=== PATIENT | male | born 1970 | race Caucasian/White ===

== ENCOUNTER 2025-06-17 02:46 | Emergency (ER) | payer BC, SELFPAY ==
--- NOTE | 2025-06-17 02:50 | ED.ABDPAIN ---
HPI - Abdominal Pain General Time Seen by Provider: 02:50 Date Seen: 06/17/25 Chief Complaint: Abdominal Pain Stated Complaint: abdominal pain Time Seen by Provider: 06/17/25 02:50 Source: patient, RN notes reviewed and old records reviewed Mode of arrival: ambulatory Limitations: no limitations History of Present Illness HPI narrative: 54-year-old male who comes in today with abdominal pain. Patient woke with left lower quadrant abdominal pain about 1:30 a.m., pain is constant, does not radiate into the back or genitals, no urinary symptoms, no diarrhea. No fevers or chills, no prior surgeries. Denies blood in the stools. Has not taken anything for symptoms. Not worse with movement. Related Data Home Medications ?Medication ?Instructions ?Recorded ?Confirmed amlodipine 5 mg tablet 5 mg PO DAILY 06/17/25 06/17/25 atorvastatin 10 mg tablet 10 mg PO DAILY 06/17/25 06/17/25 lisinopril 20 2 tab PO DAILY 06/17/25 06/17/25 mg-hydrochlorothiazide 12.5 mg tablet Previous Rx's ?Medication ?Instructions ?Recorded oxycodone 5 mg tablet 5 mg PO Q6H PRN pain #7 tabs 06/17/25 Allergies Allergy/AdvReac Type Severity Reaction Status Date / Time No Known Drug Allergies Allergy Verified 06/17/25 02:53 [facility] Medical History (Updated 06/17/25 @ 03:27 by Randy Knox MD) Hypertension ?I10 - Essential (primary) hypertension (ICD-10) Social History Smoking Status: Never smoker Do you use any of these nicotine containing products: Smokeless Tobacco Second hand tobacco smoke exposure: No How often do you have a drink containing alcohol: 4 or more times a week How many standard drinks containing alcohol do you have on a typical day: 5 or 6 How often do you have six or more drinks on one occasion: Daily or almost daily AUDIT-C Alcohol total score: 10 Non-prescribed substance use: denies use Exam Narrative: Exam Narrative: General: Well-developed and well-nourished, no acute distress Head: Atraumatic and normocephalic Eyes: Pupils are equal reactive, extraocular motions intact, conjunctiva clear ENT: External nose and ears are normal, posterior pharynx without erythema or exudate Neck: No midline cervical tenderness, full spontaneous range of motion the neck, trachea midline, no adenopathy Heart: Regular rate and rhythm no murmurs or thrills Lungs: Clear to auscultation bilaterally without wheezes or crackles Abdomen: Soft, left lower quadrant tenderness Musculoskeletal: No tenderness, deformity, or edema Neurologic: Awake, alert, and oriented x3, no gross focal neurologic deficits, cranial nerves intact as tested Psych: Mood and affect are appropriate Skin: No rashes Const: Vital Signs, click to edit/add: Vital Signs - 24 hr 06/17/25 02:51 06/17/25 03:01 06/17/25 03:19 Temperature 97.6 F 97.6 F Pulse Rate [Right Pulse Oximeter] 89 Respiratory Rate 18 Blood Pressure [Ri ght Upper Arm] 172/101 H Pulse Oximetry 97 97 Oxygen Delivery Me thod Room Air Course Course ED Course: Reviewed most recent primary care visit from June 2024 which was for follow-up for hypertension, at that time had recently started amlodipine. Patient seen examined, presents today with left lower quadrant abdominal pain that woke him from sleep about 1 hour prior to coming to the emergency department. No nausea, vomiting, urinary symptoms, diarrhea. No fever chills. No prior surgeries. No radiation. On exam patient is finally stable, left lower quadrant tenderness. Suspect diverticulitis, colitis or ureterolithiasis also possible but clinically less likely. Labs ordered along with CT, fluids. Reevaluation(s) Time of Reevaluation #1: 03:22 Reevaluation #1: Labs and vital interpreted by me as normal CBC and normal basic panel. CT scan of the abdomen and pelvis independently interpreted by me with mild hydronephrosis and hydroureter from a 3 mm left ureteral stone. Discussed with patient, plan to discharge with medications for pain management and follow-up with urology. Time of Reevaluation #2: 03:33 Reevaluation #2: Urinalysis independently interpreted by me without evidence for infection. Updated patient with findings and plan, he is comfortable and stable for discharge. Vital Signs Vital signs: Initial Vital Signs Temperature 97.6 F 06/17/25 02:51 Temperature Source Temporal Artery Scan 06/17/25 02:51 Pulse Rate 89 06/17/25 02:51 Respiratory Rate 18 06/17/25 02:51 Blood Pressure 172/101 H 06/17/25 02:51 Blood Pressure Mean 124 H 06/17/25 02:51 Blood Pressure Position Sitting 06/17/25 02:51 Pulse Oximetry 97 06/17/25 02:51 Oxygen Delivery Method Room Air 06/17/25 02:51 Vital Signs Temperature 97.6 F 06/17/25 02:51 Pulse Rate 89 06/17/25 02:51 Respiratory Rate 18 06/17/25 02:51 Blood Pressure 172/101 H 06/17/25 02:51 Pulse Oximetry 97 06/17/25 02:51 Oxygen Delivery Method Room Air 06/17/25 02:51 Temperature 97.6 F 06/17/25 03:01 Pulse Rate 89 06/17/25 02:51 Respiratory Rate 18 06/17/25 02:51 Blood Pressure 172/101 H 06/17/25 02:51 Pulse Oximetry 97 06/17/25 03:19 Oxygen Delivery Method Room Air 06/17/25 02:51 Medications Administered Medications: Generic Name Dose Route Start Last Admin Trade Name Freq PRN Reason Stop Dose Admin Hydromorphone HCl 0.5 mg 06/17/25 02:57 06/17/25 03:19 Hydromorphone 0.5 Mg/0.5 Ml Inj IVP 0.5 mg ONCE PRN Administration pain Ketorolac Tromethamine 15 mg 06/17/25 02:55 06/17/25 03:01 Ketorolac 15 Mg/Ml Inj IVP 06/17/25 02:56 15 mg ONCE ONE Administration MDM - Abdominal Pain Lab Data Labs: Lab Results 06/17/25 Range/Units 02:55 WBC 6.92 (4.50-11.00) K/uL RBC 4.57 (4.30-5.90) m/uL Hgb 14.9 (13.5-17.5) gm/dL Hct 43.0 (37.0-53.0) % MCV 94 (80-100) fL MCH 33 (26-34) pg MCHC 35 (32-36) gm/dL RDW Coeff of Joe 11.7 (11.5-15.5) % Plt Count 199 (140-440) K/uL Neut % (Auto) 49.0 (42.0-72.0) % Lymph % (Auto) 30.5 (20-44) % [place] % (Auto) 12.6 H (0.0-11.0) % Eos % (Auto) 7.1 H (0.0-7.0) % Baso % (Auto) 0.7 (0.0-3.0) % Neut # (Auto) 3.39 (1.7-7.0) K/uL Lymph # (Auto) 2.11 (0.90-2.90) K/uL [place] # (Auto) 0.90 (0.00-0.90) K/UL Eos # (Auto) 0.50 (0.00-0.50) K/uL Baso # (Auto) 0.05 (0.00-0.30) K/uL Abs Immat Gran (auto) 0.01 (0.00-0.30) K/uL Imm/Tot Granulo (auto) 0.1 % Sodium 138 (135-149) mmol/L Potassium 3.6 (3.6-5.1) mmol/L Chloride 104 (96-114) mmol/L Carbon Dioxide 22 (20-32) mmol/L Anion Gap 12 (7-15) mEq/L BUN 16 (7-30) mg/dL Creatinine 1.1 (0.5-1.5) mg/dL Estimated Creat Clear 89.26 Estimated GFR 80 ml/min Glucose 110 (60-115) mg/dL Calcium 9.4 (8.4-10.6) mg/dL Urine Color Yellow (Yellow) Urine Appearance Clear (Clear) Urine pH 5.5 (5.0-8.5) Ur Specific Alligator 1.025 (1.000-1.030) Urine Protein Negative (Negative) Urine Glucose (UA) Negative (Negative) Urine Ketones Trace A (Negative) Urine Blood 3+ A (Negative) Urine Nitrite Negative (Negative) Urine Bilirubin Negative (Negative) Urine Urobilinogen 0.2 (0.2-1.0) Ur Leukocyte Esterase Negative (Negative) Urine RBC 10-25 A (0-2) Urine WBC 0-2 (0-5) Ur Squamous Epith Cells Few (None-Few) Urine Bacteria Few A (None) Discharge Plan Discharge Clinical Impression: Calculus of distal left ureter Patient Disposition: Home, Self-Care Condition: Stable Instructions: How to Strain Your Urine (ED), Ureteral Stones (ED) Additional Instructions: Take Tylenol 1000 mg every 6 hours alternating with ibuprofen 400 mg every 6 hours for baseline pain management Take Zofran as needed for nausea vomiting Take oxycodone as needed for pain not controlled with Tylenol and ibuprofen Follow-up with urology: [facility] [phone] Activity Level: No Restrictions Discharge Diet: Regular Prescriptions: New oxycodone 5 mg tablet 5 mg PO Q6H PRN (Reason: pain) Qty: 7 0RF No Action atorvastatin 10 mg tablet 10 mg PO DAILY lisinopril-hydrochlorothiazide 20-12.5 mg tablet 2 tab PO DAILY amlodipine 5 mg tablet 5 mg PO DAILY Follow Up/Referrals: Provider,Not a Local [Primary Care Provider, Family Practice] Stand Alone Forms: Work/School Release, [facility] Info Instructions
[2025-06-17 02:51] VITALS: BP 172/101; PULSE 89; RESP 18; TEMP 36.4; O2SAT 97; BMI 32.1
--- NOTE | 2025-06-17 02:55 | CRLHL7_ITS ---
For Patients: As a result of the Century Cures Act, medical imaging exams and procedure reports are released immediately into your electronic medical record. You may view this report before your referring provider. If you have questions, please contact your health care provider. Indication: Left lower quadrant pain Technique: CT through the abdomen and pelvis following 122 mL Isovue 370 IV contrast Comparison: None Findings: Lower chest: Mild basilar atelectasis and/or scarring. Hepatobiliary: No significant parenchymal abnormality is appreciated. There is a 9 millimeter density along the fundus of the gallbladder. Spleen: Unremarkable. Pancreas: No acute abnormality appreciated. Adrenal glands: No acute abnormality appreciated. Kidneys: Mild left hydronephrosis with a mild delayed left nephrogram. Bilateral nonobstructing proximal stones. Bowel: No obstruction. No focal perienteric or pericolonic stranding is appreciated. The appendix is visualized and appears unremarkable. Vascular: No acute abnormality appreciated. Lymph nodes: No gross lymphadenopathy. Peritoneum: No free air. No free fluid. : There is a 3 millimeter distal left ureteral stone. Significant wall thickening and stranding involving the bladder. Soft tissues: No acute abnormality appreciated. Bones: No acute fracture. No lytic or blastic lesion. Mild spondylosis. Impression: 1. Obstructing 3 millimeter distal left ureteral stone with mild left hydronephrosis. 2. Additional bilateral nonobstructing punctate stones noted. 3. Wall thickening of the bladder with adjacent stranding, recommend correlation for superimposed UTI/cystitis. 4. There is a 9 millimeter density noted along the gallbladder fundus, no comparison study available. Recommended nonemergent outpatient right upper quadrant ultrasound for further characterization. Please note that all CT scans at this facility use dose modulation, iterative reconstruction, and/or weight-based dosing when appropriate to reduce radiation dose to as low as reasonably achievable. Dictated by Chet Gao MD @ 06/17/2025 3:23:10 AM (Electronically Signed)
[2025-06-17 03:01] VITALS: TEMP 36.4
[2025-06-17 03:02] LABS: Hematocrit* 43.0 % (37.0-53.0); Hemoglobin* 14.9 gm/dL (13.5-17.5); Immature Granulocytes Abs Auto 0.01 K/uL (0.00-0.30); Immature Granulocytes Pct Auto 0.1 %; Lymphocytes Absolute Auto 2.11 K/uL (0.90-2.90); Mean Corpuscular HGB Conc 35 gm/dL (32-36); Mean Corpuscular Hemoglobin 33 pg (26-34); Mean Corpuscular Volume 94 fL (80-100); RDW Coefficient of Variation % 11.7 % (11.5-15.5); Red Blood Count* 4.57 m/uL (4.30-5.90); White Blood Count* 6.92 K/uL (4.50-11.00)
[2025-06-17 03:09] LABS: Slide Review Reflex No
--- OUTSIDE RECORDS SUMMARY | 2025-06-17 03:13 | XMS_ITS | Clinical Summary ---
Author Organization [facility] Address [address] [place] [id number] Care Team Providers Care Poultry Killer Name Role Phone [facility] - Primary C are Provider Allergies No known active allergies Medications atorvastatin (LIPITOR) 10 mg tablet Take 10 mg by mouth once daily. Active lisinopril-hydr ochlorothiazide (10-12.5 mg) tablet (PRINZIDE; ZESTORETIC) Take 1 Tablet by mouth once daily. Active sennosides-docu sate (SENOKOT S) (8.6-50 mg) tabletIndicatio ns:Umbilical hernia without obstruction and without gangrene Take 1 Tablet by mouth 2 times daily if needed for Constipation. 10 Tablet 3 Active HYDROcodone-connie taminophen (5-325 mg/tablet)Indic ations:Umbilica l hernia without obstruction and without gangrene Take 1-2 Tablets by mouth every 4 hours if needed for Pain. Max acetaminophen dose: 4000 mg in 24 hrs. 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 Gender Identity Not on file Sexual Orientation Not on file Obstetrics History Last Filed Vital Signs Vital Sign Reading Time Taken Comments Blood Pressure 133/90 07/12/2023 3:05 PM CDT Pulse 79 07/12/2023 3:05 PM CDT Temperature 36.7 C (98 F) 07/12/2023 2:30 PM CDT Respiratory Rate 16 07/12/2023 3:05 PM CDT Oxygen Saturation 96% 07/12/2023 3:05 PM CDT Inhaled Oxygen Concentration - - Weight 112.9 kg (248 lb 14.4 oz) 2022 11:57 AM CDT Height 188.7 cm (6' 2.29) 07/12/2023 1 1:57 AM CDT Body Mass Index 31.71 07/12/2023 11:57 AM CDT Plan of Treatment Health Maintenance Due Date Last Done Comments Tetanus booster 1981 Depression screening for age 12+ 1982 HIV for age 15-65 1985 BMI (ht and wt on same day) for age 18+ 1988 Hepatitis C screening for age 18-79 1988 Hepatitis B series for 19+ ( 1 of 3 - 19+ 3-dose series) 1989 Colonoscopy through age 75 2015 Lipids for age 45-75 2015 Pneumococcal series for age 50+ (1 of 1 - PCV) 2020 Zoster (shingles) series for age 50+ (1 of 2) 2020 COVID-19 vaccine series (2024- season) 2025 09/25/2021, 01/05/2021, 12/08/2020 Influenza Vaccine (#1) 2025 RSV vaccine for adults or pr egnancy (1 - 1-dose 75+ series) 2045 Medical Devices Implanted Type Area Yarn Texture Machine Operator Device Identifier Shelf Expiration Date Model / Serial / Lot Mesh Ventral 1.7in Ventralex St W/Ciera - [id number] Implanted:Qty: 1 on 07/12/2023 by Marium Gregg MD at N/A: [employer]domen [employer] 10/20/2024 [id number] / / [id number] Description:[employer] [address] [place] [address] [place] Advance Directives * Full Code (Latest Code Status on File) Date Activated Date Inactivated Comments 07/12/2023 11:46 AM 07/12/2023 5:35 PM Question Answer Comments Code Status Discussion: Unable to Assess Preferences, Provider to review later Care Teams Poultry Killer Relationship Specialty Start Date End Date [facility] - [address] [facility] [place] [address] PCP - General 07/04/23
--- OUTSIDE RECORDS SUMMARY | 2025-06-17 03:13 | XMS_ITS | Encounter Summary ---
Author Organization [facility] Address [address] [place] [address] Care Team Providers Care Bmw Service Technician Name Role Phone Dhiraj Menard P.A.-C. Primary Care Provider Reason for Visit * Reason Onset Date Comments Quality 05/28/2025 HTN Encounter Details Date Type Department Care Team (Late st Contact Info) Description 05/28/2025 Clinical Communication Department of Family Medicine, [facility], in [place], [place] [address] [place] [phone] Dhiraj Menard P.A.-C. [address] [place] [phone] Quality (HTN) Social History Tobacco Use Types Packs/Day Years Used Date Smoking Tobacco: Never Smokeless Tobacco: Current Chew Humiliation, Afraid, Rape, and Kick questionnair e Answer Date Recorded Within the last year, have y ou been afraid of your partner or ex-partner? No 10/23/2019 Within the last year, have y ou been humiliated or emotionally abused in other ways by your partner or ex-partner? Patient declined 10/23/2019 Within the last year, have y ou been kicked, hit, slapped, or otherwise physically hurt by your partner or ex-partner? Patient declined 10/23/2019 Within the last year, have y ou been raped or forced to have any kind of sexual activity by your partner or ex-partner? Patient declined 10/23/2019 Hunger Vital Sign Answer Date Recorded Within the past 12 months, y ou worried that your food would run out before you got the money to buy more. Never true Within the past 12 months, t he food you bought just didn't last and you didn't have money to get more. Patient declined Education Answer Date Recorded What is the highest level of school you have completed or the highest degree you have received? 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 - 05/28/2025 10:02 AM CDT Left message for patient to return call to clinic. Does the patient need to speak to nursing? no Action needed: Patient is due for labs & appt w/ PCP - please assist in scheduling. documented in this encounter Plan of Treatment Not on file documented as of this encounter Visit Diagnoses Not on filedocumented in this encounter Additional Health Concerns Assessment Noted Time PHQ-9 Depression Total Score: 0 03/22/20 17 10:10 AM CDT documented as of this encounter Care Teams Bmw Service Technician Relationship Specialty Start Date End Date Dhiraj Menard P.A.-C. [address] [place] [phone] PCP - General Family Medicine 05/08/23 documented as of this encounter
--- OUTSIDE RECORDS SUMMARY | 2025-06-17 03:13 | XMS_ITS | Encounter Summary ---
Author Organization [facility] Address [address] [place] [address] Care Team Providers Care Physical Education Specialist Name Role Phone Dhiraj Menard P.A.-C. Primary Care Provider Reason for Visit * Reason Comments Med Refill Encounter Details Date Type Department Care Team (Late st Contact Info) Description 06/02/2025 Refill Department of Family Medicine, [facility], in [place], [place] [address] [place] [phone] Dhiraj Menard P.A.-C. 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 [address] [place] [phone] PCP - General Family Medicine 05/08/23 documented as of this encounter
--- OUTSIDE RECORDS SUMMARY | 2025-06-17 03:13 | XMS_ITS | Clinical Summary ---
Author Organization [facility] Address [address] [place] [address] Care Team Providers Care Microcomputer Technician Name Role Phone Dhiraj Menard P.A.-C. Primary Care Provider Source Comments Patient records contain information from all sites at [facility]. For routine questions regarding patient records, call [phone] during business hours, M-F 8:00 AM - 5:00 PM Central Time. Record requests for emergency care only can be directed to [phone] at any time.[facility] Allergies No known active allergies Medications amLODIPine (Norvasc) 5 mg tablet Take 1 tablet (5 mg total) by mouth daily. Patient needs Office Visit for further refills. 90 tablet 5 Active atorvastatin (Lipitor) 10 mg tablet TAKE 1 TABLET BY MOUTH EVERY DAY 90 tablet 5 Active lisinopril-hyd roCHLOROthiazi de 20-12.5 mg per tablet TAKE 2 TABLETS BY MOUTH EVERY DAY 180 tablet 5 Active atorvastatin (Lipitor) 10 mg tablet Take 1 tablet (10 mg total) by mouth daily. 90 tablet 3 4 06/07/20 25 Discontinued lisinopril-hyd roCHLOROthiazi de 20-12.5 mg per tablet Take 2 tablets by mouth daily. 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 Med Refill 05/28/2025 Clinical Communication Department of [facility], [facility], [address] [phone] Dhiraj Menard P.A.-C. Quality (HTN) 04/11/2025 Refill Department of [facility], [facility], [place], [place] [address] [facility] [place] [place] [address] Dhiraj Menard P.A.-C. Med Refill 03/22/2025 Clinical Communication Department of [facility], [address] [phone] Dhiraj Menard P.A.-C. Quality (HTN) from Last 3 Months Immunizations Immunization Administration Dates Next Due HZV (ZOSTAVAX) 07/04/2023(Deferred: Patient Ref used) HepA Adult 07/04/2023(Deferred: Patient Ref used) HepB Adult (HEPLISAV-B) 07/04/2023(Deferred: Pat ient Refused) MMR 01/28/1980 Td (Adult), adsorbed 06/11/1984 Tdap 10/05/2015,03/07/2006 Family History Medical History Relation Name Comments Stroke Father Alzheimer's disease Mother Relation Name Status Comments Father Mother Social History Tobacco Use Types Packs/Day Years Used Date Smoking Tobacco: Never Smokeless Tobacco: Current Chew Tobacco Cessation:Ready to Q uit: Not Asked; Counseling Given: Not Answered Humiliation, Afraid, Rape, and Kick questionnair e [...] on file Legal Sex Male 5:37 AM REFUGE MANAGER Gender Identity Not on file Sexual Orientation Not on file Last Filed Vital Signs Vital Sign Reading Time Taken Comments Blood Pressure 147/99 10/20/2024 3:03 PM REFUGE MANAGER avg of 3 Pulse 101 10/20/2024 3:03 PM REFUGE MANAGER avg o f 3 Temperature 36.1 C (97 F) 06/29/2024 11:07 AM CDT Respiratory Rate 16 06/15/2024 1:37 PM CDT Oxygen Saturation 98% 07/04/2023 1:42 PM CDT Inhaled Oxygen Concentration - - Weight 115 kg (253 lb 8.5 oz) 10/20/2024 2:53 PM REFUGE MANAGER Height 189 cm (6' 2.41) 06/29/2024 11:07 AM CDT Body Mass Index 32.19 06/29/2024 11:07 AM CDT Plan of Treatment Health Maintenance Due Date Last Done Comments CT Colonography 1970 Colonoscopy 1970 FIT 1970 HIV Screening 1970 Hepatitis C Screening 1970 Hepatitis B Vaccines (1 of 3 - 19+ 3-dose series) 1989 Pneumococcal vaccine (50+ years) (1 of 2 - PCV) 1989 Zoster Vaccines (1 of 2) 2020 Tobacco Cessation counseling 07/04/2024 07/04/2023 Depression Screening (Annual PHQ-2) 09/23/2024 Office Visit for Blood Pressure Check / Re-check 09/29/2024 06/29/2024 COVID-19 Vaccine ( season) 2025 09/25/2021, 01/05/2021, 12/08/2020 Influenza Vaccine (#1) 2025 Creatinine Level (Kidney Function Test) 06/15/2025 06/15/2024, 07/11/2023, 06/06/2023, Additional history exists Potassium Level 06/15/2025 06/15/2024, 06/23, 06/06/2023, Additional history exists Sodium Level 06/15/2025 06/15/2024, 06/23, 06/06/2023, Additional history exists Visit: Chronic Disease, age 18+ 06/29/2025 06/29/2024 Cologuard 08/05/2025 08/05/2022 Colorectal Cancer Screening 08/05/2025 DTaP,Tdap,and Td Vaccines (4 - Td or Tdap) 10/05/2025 10/05/2015, 03/07/2006, 06/11/1984 Fasting Glucose for Diabetes Screening 06/15/2027 06/15/2024, 07/11/2023, 06/06/2023, Additional history exists Lipid (Cholesterol) Screening 06/15/2029 06/15/2024, 06/06/2023, 10/23/2019, Additional history exists IPV Vaccines Aged Out No longer eligi ble based on patient's age to complete this topic Procedures Procedure Name Priority Date/Time Associated Diagnosis Comments LIPID PANEL, S Routine 06/15/2024 1:31 PM CDT Screening Examination Diabetes Mellitus Screening Examination Prostate Cancer Encounter For Screening For Cardiovascular Disorders COMPREHENSIVE METABOLIC PANEL, S/P Routine 06/15/2024 1:31 PM CDT Screening Examination Diabetes Mellitus Screening Examination Prostate Cancer Encounter For Screening For Cardiovascular Disorders COLOGUARD Routine 08/05/2022 11:00 AM REFUGE MANAGER Screening Cancer Colon from Last 3 Months or Most Recently Relevant to Health Maintenance Results * (ABNORMAL) Lipid Panel (06/15/2024 1:31 PM CDT) Triglycerides 251(H) mg/dL 06/15/2024 5:46 PM CDT OWAT Comment: ----REFERENCE VALUE---- Normal: <150 mg/dL Borderline High: 150-199 mg/dL High: 200-499 mg/dL Very High: > or =500 mg/dL Cholesterol, Total 225(H) mg/dL 2023 5:46 PM CDT OWAT Comment: ----REFERENCE VALUE---- Desirable: < 200 mg/dL Borderline High: 200 - 239 mg/dL High: > or = 240 mg/dL Cholesterol, LDL, Calculated 130(H) mg/dL 06/15/2024 5:46 PM CDT OWAT Comment: ----REFERENCE VALUE---- Desirable: <100 mg/dL Above Desirable: 100-129 mg/dL Borderline High: 130-159 mg/dL High: 160-189 mg/dL Very High: >=190 mg/dL ----ADDITIONAL INFORMATION---- LDL cholesterol calculated using the Cantu/NIH equation. Cholesterol, HDL 51 >=40 mg/dL 06/15/20 5:46 PM CDT OWAT Cholesterol, Non-HDL, Calculated 174(H) mg/dL 06/15/2024 5:46 PM CDT OWAT Comment: ----REFERENCE VALUE---- Desirable: <130 mg/dL Above Desirable: 130-159 mg/dL Borderline High: 160-189 mg/dL High: 190-219 mg/dL Very High: > or =220 mg/dL Fasting (8 HR or more) No 06/15/2024 1:31 PM CDT OWAT Blood (Blood, Venous) 06/15/2024 1:31 PM CDT 06/15/2024 5:26 PM CDT us Dhiraj Menard P.A.-C. LAB BLOOD ADD-ON Final Result [facility] [address] [place] [address], [facility] [place] [address] [place] [address] * Comprehensive Metabolic Panel (06/15/2024 1:31 PM CDT) Potassium, P 4.4 3.6 - 5.2 mmol/L 06/15/2024 5:46 PM CDT OWAT Sodium, P 138 135 - 145 mmol/L 06/15/2024 5:46 PM CDT OWAT Chloride, P 103 98 - 107 mmol/L 06/15/2024 5:46 PM CDT OWAT Bicarbonate, P 26 22 - 29 mmol/L 06/15/2024 5:46 PM CDT OWAT Anion Gap, P 9 7 - 15 06/15/2024 5:46 PM CDT OWAT BUN (Blood Urea Nitrogen), P 16 8 - 24 mg/dL 06/15/2024 5:46 PM CDT OWAT Creatinine 1.11 0.74 - 1.35 mg/dL 06/15/2024 5:46 PM CDT OWAT Estimated GFR (eGFR) 79 >=60 mL/min/BS A 06/15/2024 5:46 PM CDT OWAT Comment: Estimated GFR calculated using the 2020 CKD_EPI creatinine equation. Calcium, Total, P 9.7 8.6 - 10.0 mg/dL 06/15/2024 5:46 PM CDT OWAT Glucose, P 93 70 - 140 mg/dL 06/15/2024 5:46 PM CDT OWAT Protein, Total, P 7.7 6.3 - 7.9 g/dL 06/15/2024 5:46 PM CDT OWAT Albumin, P 4.5 3.5 - 5.0 g/dL 06/15/2024 5:46 PM CDT OWAT Aspartate Aminotransferase (AST), P 35 8 - 48 U/L 06/15/2024 5:46 PM CDT OWAT Alkaline Phosphatase, P 79 40 - 129 U/L 06/15/2024 5:46 PM CDT OWAT Alanine Aminotransferase (ALT), P 40 7 - 55 U/L 06/15/2024 5:46 PM CDT OWAT Bilirubin, Total, P 0.5 0.0 - 1.2 mg/dL 06/15/2024 5:46 PM CDT OW Blood (Blood, Venous) 06/15/2024 1:31 PM CDT 06/15/2024 5:26 PM CDT Dhiraj Menard P.A.-C. LAB BLOOD ADD-ON Final Result [facility] [address] [place] [address], [facility] OWAT [facility] [place] [address] [place] [address] * Cologuard-Sent Out Lab (08/05/2022 11:00 AM REFUGE MANAGER) Result Negative Negative 08/10/2022 4:33 PM REFUGE MANAGER EXLI Comment: NEGATIVE TEST RESULT. A negative Cologuard result indicates a low likelihood that a colorectal cancer (CRC) or advanced adenoma (adenomatous polyps with more advanced pre-malignant features) is present. The chance that a person with a negative Cologuard test has a colorectal cancer is less than 1 in 1500 (negative predictive value >99.9%) or has an advanced adenoma is less than 5.3% (negative predictive value 94.7%). These data are based on a prospective cross-sectional study of 10,000 individuals at average risk for colorectal cancer who were screened with both Cologuard and colonoscopy. (Jacqueline Botello et al, N Engl J Med 2014;370(14):9465-2911) The normal value (reference range) for this assay is negative. COLOGUARD RE-SCREENING RECOMMENDATION: Periodic colorectal cancer screening is an important part of preventive healthcare for asymptomatic individuals at average risk for colorectal cancer. Following a negative Cologuard result, the [place] [employer] and U.S. Multi-Society Task Force screening guidelines recommend a Cologuard re-screening interval of 3 years. References: [place] [employer] Guideline for Colorectal Cancer Screening: https://www.cancer.org/cancer/azsuf-emilfe-mmekho/detection- diagnosis-staging/acs-recommendations.html.; Monty DK, Maryam CR, Ara SEVILLA, Colorectal Cancer Screening: Recommendations for Physicians and Patients from the U.S. Multi-Society Task Force on Colorectal Cancer Screening , Am J Gastroenterology 2017; 112:5751-2882. TEST DESCRIPTION: Composite algorithmic analysis of stool DNA-biomarkers with hemoglobin immunoassay. Quantitative values of individual biomarkers are not reportable and are not associated with individual biomarker result reference ranges. Cologuard is intended for colorectal cancer screening of adults of either sex, 45 years or older, who are at average-risk for colorectal cancer (CRC). Cologuard has been approved for use by the U.S. FDA. The performance of Cologuard was established in a cross sectional study of average-risk adults aged 50-84. Cologuard performance in patients ages 45 to 49 years was estimated by sub-group analysis of near-age groups. Colonoscopies performed for a positive result may find as the most clinically significant lesion: colorectal cancer [4.0%], advanced adenoma (including sessile serrated polyps greater than or equal to 1cm diameter) [20%] or non- advanced adenoma [31%]; or no colorectal neoplasia [45%]. These estimates are derived from a prospective cross-sectional screening study of 10,000 individuals at average risk for colorectal cancer who were screened with both Cologuard and colonoscopy. (Jacqueline Laurent. et al, N Engl J Med 2014;370(14):7997-8661.) Cologuard may produce a false negative or false positive result (no colorectal cancer or precancerous polyp present at colonoscopy follow up). A negative Cologuard test result does not guarantee the absence of CRC or advanced adenoma (pre-cancer). The current Cologuard screening interval is every 3 years. ([place] [employer] and U.S. Multi-Society Task Force). Cologuard performance data in a 10,000 patient pivotal study using colonoscopy as the reference method can be accessed at the following location: [email or web address]/results. Additional description of the Cologuard test process, warnings and precautions can be found at [email or web address]. Stool (Stool) 08/05/2022 11: 00 AM REFUGE MANAGER 08/07/2022 4:28 PM REFUGE MANAGER us Dhiraj Menard P.A.-C. LAB BODY FLUIDS AND ST OOLS ORDERABLES Final Result [facility] [address] [place] [address] EXLI Cater to u [address] [facility], [address] [place] [address] from Last 3 Months or Most Recently Relevant to Health Maintenance Insurance [address] [place] [address] [facility] Care Teams Microcomputer Technician Relationship Specialty Start Date End Date Dhiraj Menard P.A.-C. [address] [place] [id number] PCP - General Family Medicine 05/08/23
[2025-06-17 03:14] LABS: Chloride* 104 mmol/L (96-114)
[2025-06-17 03:15] LABS: Potassium* 3.6 mmol/L (3.6-5.1); Sodium* 138 mmol/L (135-149)
[2025-06-17 03:17] LABS: Blood Urea Nitrogen* 16 mg/dL (7-30); Creatinine* 1.1 mg/dL (0.5-1.5); Est. Creatinine Clearance* 89.26; Estimated Glomerular Filt Rate 80 ml/min
[2025-06-17 03:18] LABS: Anion Gap 12 mEq/L (7-15); Calcium* 9.4 mg/dL (8.4-10.6); Carbon Dioxide* 22 mmol/L (20-32); Glucose* 110 mg/dL (60-115)
[2025-06-17 03:19] VITALS: O2SAT 97
[2025-06-17 03:21] LABS: Appearance Urine Clear (Clear)
[2025-06-17 03:41] VITALS: BP 154/89; PULSE 81; RESP 18; TEMP 36.7; O2SAT 97
== END 2025-06-17 03:42 | disposition home or self-care (01) ==
PROVIDERS: Emergency Provider Family Medicine
DX: N20.1 Calculus of ureter (principal)
CPT/HCPCS: 36415; 74177; 80048; 81001; 85025; 87086; 94761; 96374; 96375; 99284; J1171; J1885; Q9967